=== PATIENT | female | born 1995 | race Caucasian/White ===

== ENCOUNTER 2018-06-20 04:13 | Emergency (ER) | payer SELFPAY ==
[~2018-06-20] VITALS: Ht 154.9 cm; Wt 78.0 kg
[2018-06-20 05:45] VITALS: BP 120/80
== END 2018-06-20 06:26 | disposition left against medical advice (07) ==
LOC: ER 04:13
DX: R42 Dizziness and giddiness (principal); Z53.21 Procedure and treatment not carried out due to patient leaving prior to being seen by health care provider